=== PATIENT | female | born 1945 | race Two or more races ===

== ENCOUNTER 2017-09-24 12:44 | Outpatient (CLI) | payer OTHER | END 2017-09-24 13:02 | disposition home or self-care (01) | LOC: MAMO-SONO 12:44 | DX: Z12.31 Encounter for screening mammogram for malignant neoplasm of breast (principal); Z87.898 Personal history of other specified conditions; E11.65 Type 2 diabetes mellitus with hyperglycemia; E03.8 Other specified hypothyroidism; I10 Essential (primary) hypertension; M81.0 Age-related osteoporosis without current pathological fracture ==

== ENCOUNTER → 2017-09-24 | Outpatient (CLI) | payer OTHER ==
[~2017-09-24] MED LIST: ALTACE10 MG; SYNTHROID50 MCG
== END | disposition home or self-care (01) ==
LOC: NUCLEAR 11:00
DX: M81.0 Age-related osteoporosis without current pathological fracture (principal); E03.8 Other specified hypothyroidism; I10 Essential (primary) hypertension

== ENCOUNTER 2017-12-21 11:55 | Emergency (ER) | payer OTHER ==
[~2017-12-21] VITALS: Ht 157.5 cm; Wt 71.7 kg
[2017-12-21] MEDS ORDERED: LEVAQUIN750 MG PO (13:29)
== END 2017-12-21 15:46 | disposition home or self-care (01) ==
LOC: ER 11:55
DX: L02.31 Cutaneous abscess of buttock (principal)

== ENCOUNTER 2021-08-19 11:25 | Outpatient (CLI) | payer OTHER ==
[~2021-08-19 11:25] MED LIST changes: +DICLOFENAC POTA50 MG PO; +LEVAQUIN750 MG PO; +NORFLEX100MG PO
== END 2021-08-19 11:35 | disposition home or self-care (01) ==
LOC: MRI 11:25
PROVIDERS: ATTEND Physical Medicine & Rehabilitation
DX: M54.50 Low back pain, unspecified (principal)
CPT/HCPCS: 72148

== ENCOUNTER 2022-10-31 07:09 | Outpatient (CLI) | payer OTHER | END 2022-10-31 07:11 | disposition home or self-care (01) | LOC: EDBD 07:09 → NUCLEAR 07:09 | PROVIDERS: ATTEND Internal Medicine | DX: I11.9 Hypertensive heart disease without heart failure (principal); I20.8 Other forms of angina pectoris | CPT/HCPCS: 78452; 93017; A9500 ==

== ENCOUNTER 2022-10-31 07:21 | Outpatient (CLI) | payer OTHER | END 2022-10-31 07:22 | disposition home or self-care (01) | LOC: LAB 07:21 | PROVIDERS: ATTEND Internal Medicine | DX: U07.1 COVID-19 (principal); B34.1 Enterovirus infection, unspecified ==

== ENCOUNTER 2023-03-12 08:55 | Emergency (ER) | payer OTHER ==
[~2023-03-12] VITALS: Ht 157.5 cm; Wt 74.8 kg
[2023-03-12 10:31] LABS: HEMATOCRIT 38.6 % (36.0-45.00); HEMOGLOBIN 13.1 g/dL (12.0-15.00); MEAN CELL VOLUME 87.6 fL (80.00-100.00); MEAN CORPUSCULAR HEMOGLOBIN 29.8 pg (27.00-32.0); PLATELET COUNT 265 K/uL (150-450); RED CELL DISTRIBUTION WIDTH 13.6 % (11.5-14.5)
[2023-03-12 11:38] LABS: URINE APPEARANCE Cloudy; URINE BILIRRUBIN Negative (NEGATIVE); URINE BLOOD Large; URINE COLOR Yellow; URINE GLUCOSE Negative (NEGATIVE); URINE LEUKOCYTE Large; URINE NITRATE Negative; URINE PROTEIN 30 (NEGATIVE); URINE UROBILINOGEN 0.2 E.U./dl
[2023-03-12 11:42] LABS: URINE BACTERIA 280.9 uL (0.0-1933); URINE RBC 1940.4 uL (0.0-20.8); URINE WBC 2112.7 uL (0.0-23.2)
[2023-03-12] MEDS ORDERED: BACTRIM DS TAB1 EACH PO (12:28)
== END 2023-03-12 12:55 | disposition home or self-care (01) ==
LOC: ER 08:55
PROVIDERS: General Practice
DX: N39.0 Urinary tract infection, site not specified (principal); I10 Essential (primary) hypertension

== ENCOUNTER 2023-05-15 11:32 | Outpatient (CLI) | payer OTHER ==
[~2023-05-15 11:32] MED LIST changes: +BACTRIM DS TAB1 EACH PO
[2023-05-15 13:03] LABS: HEMATOCRIT 37.3 % (36.0-45.00); MEAN CELL VOLUME 89.8 fL (80.00-100.00); MEAN CORPUSCULAR HEMOGLOBIN 31.3 pg (27.00-32.0); MEAN CORPUSCULAR HGB CONC 34.9 g/dl (32.0-36.0); PLATELET COUNT 266 K/uL (150-450); RED BLOOD COUNT 4.15 M/uL (4.00-6.00); RED CELL DISTRIBUTION WIDTH 13.7 % (11.5-14.5)
[2023-05-15 13:33] LABS: ALBUMIN 3.7 gm/dL (3.4-5.0); BILIRUBIN TOTAL 0.47 mg/dL (0.3-1.2); CALCIUM 9.1 mg/dL (8.5-10.1); CHOL HDL RATIO 5.6 (0-5.0); CREATININE SERUM 0.58 mg/dL (0.55-1.02); GFR 101.34; GLOBULINA 3.4 G/DL (2.4-3.5); POTASSIUM 4.01 mEq/L (3.5-5.1); TOTAL PROTEIN 7.1 gm/dL (6.4-8.2); TSH 1.92 uIU/mL (0.358-3.74)
== END 2023-05-15 11:33 | disposition home or self-care (01) ==
LOC: LAB 11:32
PROVIDERS: ATTEND Internal Medicine
DX: I11.9 Hypertensive heart disease without heart failure (principal); E03.9 Hypothyroidism, unspecified; E78.2 Mixed hyperlipidemia

== ENCOUNTER 2023-08-15 13:30 | Outpatient (CLI) | payer OTHER | END 2023-08-15 13:32 | disposition home or self-care (01) | LOC: MRI 13:30 | PROVIDERS: ATTEND Physical Medicine & Rehabilitation | DX: M17.11 Unilateral primary osteoarthritis, right knee (principal) | CPT/HCPCS: 73718 ==

== ENCOUNTER 2024-05-07 06:09 | Emergency (ER) | payer OTHER ==
[~2024-05-07] VITALS: Ht 167.6 cm; Wt 72.6 kg
[2024-05-07 06:21] VITALS: BP 160/81; O2SAT 99
[2024-05-07 09:03] LABS: HEMATOCRIT 36.5 % (36.0-45.00); HEMOGLOBIN 12.7 g/dL (12.0-15.00); MEAN CELL VOLUME 88.7 fL (80.00-100.00); MEAN CORPUSCULAR HEMOGLOBIN 30.9 pg (27.00-32.0); MEAN CORPUSCULAR HGB CONC 34.9 g/dl (32.0-36.0); PLATELET COUNT 276 K/uL (150-450); RED BLOOD COUNT 4.12 M/uL (4.00-6.00)
[2024-05-07] MEDS ORDERED: CEFTRIAXONE SODIUM 1,000 MG VIAL IM STA (10:40)
[2024-05-07] MEDS ORDERED: METHYLPREDNISOLONE SOD SUCC 125 MG VIAL IM STA (10:40)
== END 2024-05-07 10:56 | disposition home or self-care (01) ==
LOC: ER 06:09
PROVIDERS: General Practice
DX: R05.9 Cough, unspecified (principal); Z20.822 Contact with and (suspected) exposure to COVID-19
CPT/HCPCS: 36415; 96372; 99283; J0696

== ENCOUNTER → 2024-11-14 11:08 | Outpatient (CLI) | payer OTHER ==
[~2024-11-14 11:08] MED LIST changes: +HYALGAN10 MG/1 ML IU
== END | disposition home or self-care (01) ==
LOC: NUCLEAR 10-24 11:00
PROVIDERS: ATTEND Internal Medicine
DX: M81.0 Age-related osteoporosis without current pathological fracture (principal)

== ENCOUNTER 2025-01-27 10:25 | Outpatient (CLI) | payer OTHER ==
[2025-01-27 12:25] LABS: CHOL HDL RATIO 2.8 (0-5.0); GAMMA GLUTAMIL TRANSFERASE 19.0 U/L (5-55); HDL 41.0 mg/dl (40-60); LDH 145.0 U/L (84-246); LDL 45.0 mg/dl (0-130); PHOSPHOKINASE CREATININE 260.0 U/L (26-192); VLDL 26.0 (0-39)
[2025-01-27 13:07] LABS: ALT/SGPT 24.0 U/L (12-78); AST/SGOT 17.0 U/L (15-37); BILIRUBIN TOTAL 0.47 mg/dL (0.3-1.2); BUN CREA RATIO 24.0 (7.0-25.0); CREATININE SERUM 0.5 mg/dL (0.55-1.02); GFR 119.64; GLOBULINA 3.2 G/DL (2.4-3.5); GLUCOSE FASTING 84.0 mg/dL (65-100); OSMOLALITY SERUM 282.0 MOSM/KG (275-295)
[2025-01-27 13:38] LABS: URINE APPEARANCE Clear; URINE BILIRRUBIN Negative (NEGATIVE); URINE BLOOD Negative; URINE COLOR Yellow; URINE GLUCOSE Negative (NEGATIVE); URINE KETONE Negative (NEGATIVE); URINE LEUKOCYTE Negative; URINE NITRATE Negative; URINE PROTEIN Negative (NEGATIVE); URINE UROBILINOGEN 0.2 E.U./dl
[2025-01-27 13:39] LABS: URINE EPITHELIAL CELLS 2.5 uL (0.0-38.8); URINE RBC 5.8 uL (0.0-20.8)
[2025-01-27 13:44] LABS: URINE BACTERIA 1.1 uL (0.0-1933); URINE CAST 0.14 uL (0.0-1.40); URINE WBC 0.3 uL (0.0-23.2)
[2025-01-27 14:45] LABS: VITAMIN D3 25 HYDROXY 27.16 ng/ml (30-120)
[2025-01-29 05:07] LABS: ESTRADIOL SERUM 41.4 pg/mL (0.0-54.7)
[2025-01-29 09:08] LABS: DHEA-SULFATE 35.8 ug/dL (13.9-142.8); PROGESTERONA 1.4 ng/mL (.)
[2025-01-29 15:12] LABS: LEUTEINIZING HORMONE 22.8 mIU/mL (7.7-58.5); PROLACTIN 22.3 ng/mL (3.6-25.2)
== END 2025-01-27 10:43 | disposition home or self-care (01) ==
LOC: LAB 10:25
DX: I11.0 Hypertensive heart disease with heart failure (principal); E78.2 Mixed hyperlipidemia; N39.0 Urinary tract infection, site not specified; K76.1 Chronic passive congestion of liver; E28.1 Androgen excess; D35.2 Benign neoplasm of pituitary gland; R89.1 Abnormal level of hormones in specimens from other organs, systems and tissues; N95.1 Menopausal and female climacteric states; E61.3 Manganese deficiency; D56.1 Beta thalassemia